=== PATIENT | female | born 1965 | race Caucasian/White ===

== ENCOUNTER 2019-04-04 13:38 | Emergency (ER) | payer OTHER ==
[2019-04-04 14:25] VITALS: BP 142/70; PULSE 90; TEMP 98; BMI 30.9
[2019-04-04] MEDS ORDERED: KETOROLAC TROMETHAMINE 60 MG/2 ML VIAL IM ONE (14:33)
--- NOTE | 2019-04-04 14:33 | PDOC ---
History of Present Illness - General Chief Complaint: Back Pain Stated Complaint: LOWER BACK PAIN Time Seen by Provider: 04/04/19 14:16 History Source: Patient Exam Limitations: No Limitations - History of Present Illness Initial Comments: 04/04/19 14:24 CHIEF COMPLAINT: Lower back pain HISTORY OF PRESENT ILLNESS: This is a 53-year-old woman presents to the emergency department for evaluation of left-sided lower back pain radiating across her buttock and into her right groin. Reports the pain is been present for 3 days with sudden onset increase in pain this morning. She denies any dysuria, hematuria, urinary retention, incontinence of bladder or bowel, saddle anesthesia, foot drop, history of IV drug use or cancer. Patient does report having radiculopathy from her lumbar spine which usually affects the right side. REVIEW OF SYSTEMS: GENERAL: Afebrile, denies any weakness RESPIRATORY: No cough, wheezing, or hemoptysis. CARDIAC: No chest pain or shortness of breath MUSCULOSKELETAL: Pain to generalized lower back. No point tenderness. Pain worse on left compared to right SKIN : No erythema, no bruising, no deformity. GI/: Denies any abdominal pain, no urinary difficulty, incontinence or urinary retention. RECTAL: Denies any difficulty this A.m. NEUROLOGICAL: Denies any numbness or tingling. No neurosensory deficits. PHYSICAL EXAM: GENERAL: The patient is awake, alert, and fully oriented, in no acute distress. RESPIRATORY: Lungs clear bilaterally, no rhonchi wheezes or crackles CARDIAC: S1-S2 audible, no murmur rub or gallop MUSCULOSKELETAL: Pain to generalized lower back, nonradiating, no tingling or sensory deficit. Less than 2 second cap refill, +2 pedal pulses. No spinal point tenderness. Normal reflexive and no deficits to sensation or strength. GI/: Abdomen soft, nontender, nondistended. No rebound tenderness. No masses palpable. RECTAL: Deferred patient with no neurological findings SKIN: Warm, Dry, normal turgor, no erythema, no edema no bruising. 04/04/19 14:33 Past History - Past Medical History Allergies/Adverse Reactions: Allergies Allergy/AdvReac Type Severity Reaction Status Date / Time codeine Allergy SWELLING Verified 04/04/19 14:15 OF FINGERS AND TOES Home Medications: Ambulatory Orders Naproxen [Naprosyn -] 500 mg PO BID PRN 03/13/15 Zolpidem Tartrate [Ambien] 10 mg PO HS 03/13/15 Cephalexin Monohydrate [Keflex -] 500 mg PO Q8H #30 capsule 04/04/19 Anemia: No Asthma: No Cancer: No Cardiac Disorders: No CVA: No COPD: No CHF: No Dementia: No Diabetes: No GI Disorders: No Disorders: No HTN: No Hypercholesterolemia: No Liver Disease: No Psychiatric Problems: Yes (DEPRESSION) Seizures: No Thyroid Disease: No - Surgical History Abdominal Surgery: No Appendectomy: No Cardiac Surgery: No Cholecystectomy: No Lung Surgery: No Neurologic Surgery: No Orthopedic Surgery: No - Immunization History Immunization Up to Date: No - Psycho Social/Smoking Cessation Hx Smoking History: Never smoked Have you smoked in the past 12 months: No If you are a former smoker, when did you quit?: 2004 Hx Alcohol Use: Yes (SOCIAL) Drug/Substance Use Hx: No Substance Use Type: Alcohol Hx Substance Use Treatment: No *Physical Exam - Vital Signs Last Vital Signs Temp Pulse Resp BP Pulse Ox 98 F 90 18 142/70 98 04/04/19 14:13 04/04/19 14:13 04/04/19 14:13 04/04/19 14:13 04/04/19 14:13 Medical Decision Making - Medical Decision Making 04/04/19 14:35 A/P: 53-year-old woman with left-sided lower back pain Slight CVA tenderness present otherwise unremarkable exam Urinalysis Toradol 60 mg IM Reassess 04/04/19 15:09 Patient with minimal relief of pain after receiving Toradol injection Urinalysis mildly suggestive of infection I will treat patient for pyelonephritis after receiving a urine culture. This patient has no systemic symptoms I feel safe to discharge the patient home take Keflex 500 mg 3 times daily for the next 10 days. I discussed the physical exam findings, ancillary test results and final diagnoses with the patient. I answered all of the patient's questions. The patient was satisfied with the care received and felt comfortable with the discharge plan and treatment plan. The patient will call their primary care physician within 24 hours to arrange follow-up and will return to the Emergency Department with any new, persistent or worsening symptoms. 04/04/19 15:11 Discharge - Discharge Information Problems reviewed: Yes Clinical Impression/Diagnosis: Pyelonephritis Condition: Fair Disposition: HOME - Admission No - Additional Discharge Information Prescriptions: Cephalexin Monohydrate [Keflex -] 500 mg PO Q8H #30 capsule - Follow up/Referral Referrals: Leonie Bragg MD [Primary Care Provider] - - Patient Discharge Instructions Additional Instructions: Rest, drink lots of fluids: Teas, water, soups Avoid contact with others until fevers and symptoms resolved Lots of handwashing and good hygiene Continue [id number] medications for symptomatic relief Tylenol or Motrin for fever and pain Continue all of antibiotics until completed Followup with private physician in one week for repeat urinalysis/reevaluation Return to emergency department for worsened symptoms, fevers, dehydration sue Robos lquidos: spike Amaro, edward Evite el contacto con otros hasta que las fiebres y los sntomas se resuelvan Un montn de lavado de berhane y buena higiene Contine los medicamentos sin receta para el alivio sintomtico Tylenol o Motrin para la fiebre y el dolor Continuar todos los antibiticos hasta completarse Seguimiento con mdico privado en cesar semana para repetir anlisis de orina / reevaluacin Volver al servicio de urgencias por sntomas empeorados, fiebres, deshidratacin - Post Discharge Activity
[2019-04-04] MEDS ORDERED: KETOROLAC TROMETHAMINE 60 MG/2 ML VIAL ONE (14:36)
[2019-04-04 14:58] LABS: EPI CELLS 5.1 /HPF (0-5/HPF); HYALINE CASTS 2 /lpf (0-8); URINE APPEARANCE CLEAR; URINE BACTERIA 24.2 /hpf (NEGATIVE); URINE BILIRUBIN NEGATIVE (NEGATIVE); URINE COLOR YELLOW; URINE GLUCOSE (UA) NEGATIVE (NEGATIVE); URINE KETONE NEGATIVE (NEGATIVE); URINE LEUK ESTERASE 1+ (NEGATIVE); URINE NITRITE NEGATIVE (NEGATIVE); URINE PROTEIN NEGATIVE (NEGATIVE); URINE RBC 3 /hpf (0-4); URINE UROBILINOGEN 0.2 mg/dL (0.2-1.0); URINE WBC 11 /hpf (0-5)
== END 2019-04-04 15:14 | disposition home or self-care (01) ==
LOC: JERFT 13:38 → JER 13:38 → JERFT 15:14
PROC: 3E0233Z Introduction of Anti-inflammatory into Muscle, Percutaneous Approach (ICD-10-PCS; principal; 2019-04-04)
DX: N12 Tubulo-interstitial nephritis, not specified as acute or chronic (principal); F32.9 Major depressive disorder, single episode, unspecified; Z88.5 Allergy status to narcotic agent
CPT/HCPCS: 81003; 87086; 96372; 99282-25